=== PATIENT | female | born 1965 | race Caucasian/White ===

== ENCOUNTER 2024-03-12 01:42 | Emergency (ER) | payer BC ==
[~2024-03-12] VITALS: Ht 160 cm; Wt 85.0 kg
[2024-03-12] MEDS ORDERED: oxyCODONE 5MG/ ACETAMINOPHEN 325MG TAB PO ONE (02:55)
[2024-03-12] MEDS ORDERED: PERCOCET 5/325M1 TAB PO (04:23)
[2024-03-12 04:28] VITALS: BP 158/99
== END 2024-03-12 04:47 | disposition home or self-care (01) | DRG 563 ==
LOC: ED 01:42
DX: S83.91XA Sprain of unspecified site of right knee, initial encounter (principal); F17.210 Nicotine dependence, cigarettes, uncomplicated; W01.0XXA Fall on same level from slipping, tripping and stumbling without subsequent striking against object, initial encounter